=== PATIENT | female | born 1985 | race Hispanic/Latino ===

== ENCOUNTER 2017-07-16 06:35 | Inpatient (IN) | payer BC, OTHER ==
[~2017-07-16] VITALS: Ht 160 cm; Wt 123.0 kg
--- NOTE | 2017-07-16 21:56 | NUR ---
07/16/172155 Cheyenne Blair 2124 RESP EVEN AND UNLABORED. PT VOMITS 300ML OF GREEN FLUID. FLAVOR EXTRACTOR GIVES MEDICAITON. REFER TO [facility]BC CHARTING FOR FUTURE VITAL SIGNS. PT IN SUPINE POSITION. 2134 PT DENINES PAIN AND REPORTS NAUSEA HAS DECREASED. 2148 PT ASLEEP.
--- NOTE | 2017-07-17 10:04 | PR ---
[facility] [address] [facility] [place], [place] [address] Signed PP Progress Notes Datetime Report Generated by VERNA: 07/17/2017 10:04 SUBJECTIVE: [id number] Pain: Within normal limits Nausea/Vomiting: Denies Vital Signs: [id number] Vital Signs: Reviewed; Within Normal Limits EXAM: [id number] Cardiovascular: Normal Respiratory: Not Done Abdomen/Uterus: Abnormal Lochia: Normal Vulva/Perineum: Not Done Breasts: Not Done CVA Tenderness: Not Done Extremities: Normal Incision: Normal Progress: Not Applicable Exam Comments: Abdomen with active BS. Fundus firm, NT @ U-1. H/H 10.1/29.8, WBC 10.1, plat 204k IMPRESSION/PLAN/PROCEDURES: [id number] Impression: Normal progression Other Plans: cap IV, increase ambulation, shower Procedures: None Progress Notes: Doing well. Signing Physician: Brook Dela Cruz MD CC: *Electronically Signed* 07/17/17 1004 BROOK DELA CRUZ MD PATIENT NAME: CON HOUSER PROGRESS NOTE DATE OF : 89 PHYSICIAN: BROOK DELA CRUZ MD RPT #: [id number] REPORT IS CONFIDENTIAL AND NOT TO BE RELEASED WITHOUT AUTHORIZATION
--- NOTE | 2017-07-18 09:31 | PR ---
[facility] [address] [facility] [place], [place] [address] Signed PP Progress Notes Datetime Report Generated by VERNA: 07/18/2017 09:31 SUBJECTIVE: [id number] Pain: Within normal limits Nausea/Vomiting: Denies Flatus: Yes Vital Signs: [id number] Vital Signs: Reviewed; Within Normal Limits EXAM: [id number] Cardiovascular: Not Done Respiratory: Not Done Abdomen/Uterus: Abnormal Lochia: Normal Vulva/Perineum: Not Done Breasts: Not Done CVA Tenderness: Not Done Extremities: Normal Incision: Normal Progress: Not Applicable Exam Comments: Abdomen with active BS. Fundus firm, NT @ U-1. IMPRESSION/PLAN/PROCEDURES: [id number] Impression: Normal progression Plan: Continue present management Other Plans: cap IV, increase ambulation, shower Procedures: None Progress Notes: Doing well. Probable D/C in am. Signing Physician: Brook Dela Cruz MD CC: *Electronically Signed* 07/18/17 0931 BROOK DELA CRUZ MD PATIENT NAME: CON HOUSER PROGRESS NOTE DATE OF : 89 PHYSICIAN: BROOK DELA CRUZ MD RPT #: [id number] REPORT IS CONFIDENTIAL AND NOT TO BE RELEASED WITHOUT AUTHORIZATION
--- NOTE | 2017-07-19 08:53 | PR ---
[facility] [address] [facility] [place], [place] [address] Signed PP Progress Notes Datetime Report Generated by VERNA: 07/19/2017 08:53 SUBJECTIVE: [id number] Pain: Within normal limits Nausea/Vomiting: Denies Flatus: Yes Vital Signs: [id number] Vital Signs: Reviewed; Within Normal Limits EXAM: [id number] Cardiovascular: Not Done Respiratory: Not Done Abdomen/Uterus: Abnormal Lochia: Normal Vulva/Perineum: Not Done Breasts: Not Done CVA Tenderness: Not Done Extremities: Normal Incision: Normal Progress: Not Applicable Exam Comments: Fundus firm, NT @ U-1. IMPRESSION/PLAN/PROCEDURES: [id number] Impression: Normal progression Plan: Remove bashir; Discharge Other Plans: cap IV, increase ambulation, shower Procedures: None Progress Notes: Doing well. She is ready for D/C. Signing Physician: Brook Dela Cruz MD CC: *Electronically Signed* 07/19/17 0853 BROOK DELA CRUZ MD PATIENT NAME: CON HOUSER PROGRESS NOTE DATE OF : 89 PHYSICIAN: BROOK DELA CRUZ MD RPT #: [id number] REPORT IS CONFIDENTIAL AND NOT TO BE RELEASED WITHOUT AUTHORIZATION
--- NOTE | 2017-07-30 09:05 | OR ---
[facility] [address] [place], [place] [address] Signed DATE OF OPERATION: 07/16/2017 SURGEON: Juanjose Dela Cruz MD BRANCH SERVICE ASSOCIATE: Dr. Doe PREOPERATIVE DIAGNOSIS: Term , LGA infant, history of shoulder dystocia. POSTOPERATIVE DIAGNOSIS: Term , LGA infant, history of shoulder dystocia, delivered. PROCEDURE: Primary section with low segment transverse uterine incision. ANESTHESIA: Spinal. ESTIMATED BLOOD LOSS: 600 mL. DRAINS: Parra catheter. INDICATIONS AND FINDINGS: The patient is a 32-year-old female, 4, para 3, who was admitted at 38 and 6/7th weeks for induction secondary to history of LGA and shoulder dystocia. It was felt that this baby was a little smaller than her previously affected infant, who is 10 pounds 2 ounces. She was admitted to Labor and Delivery and received one dose of Cytotec and then underwent rupture of membranes with clear fluid seen. She was then begun on Pitocin augmentation as she failed to make significant progress and contraction pattern was irregular. She progressed slowly to 6 cm, as she was 4 cm at the time of rupture, but at that point, the patient decided that she did not wish to continue with labor and that she was very concerned about the size of the baby and the possibility of complications, and she wished to undergo section. She was counseled and she elected to continue with that course. She was taken to the operating room, where she was delivered of a little boy from the ROP position via lower segment transverse uterine incision with Apgars of 9 and 9 and weight of 9 pounds 2 ounces. There was a nuchal cord x1 which was loose. Electronically Signed By: JUANJOSE DELA CRUZ MD 07/30/17 0905 PATIENT NAME: CON HOUSER OPERATIVE REPORT DATE OF : 89 PHYSICIAN: JUANJOSE DELA CRUZ MD REPORT #: [id number] REPORT IS CONFIDENTIAL AND NOT TO BE RELEASED WITHOUT AUTHORIZATION [facility] [address] [place], [place] [address] Signed DESCRIPTION OF PROCEDURE: The patient was prepped and draped in the supine position. A Pfannenstiel skin incision was made and carried down through the fascia. The incision was extended laterally. The inferior and superior fascial flaps were then created. The muscles were bluntly divided. The peritoneum entered bluntly. The Luca retractor was then placed. The incision was made at the upper edge of the peritoneal reflection. The baby was delivered with the above findings and handed off to the pediatric staff in attendance. The placenta was removed manually and the uterus explored with a lap tape showing no remaining fragments. The edges of the incision were identified. The uterus was closed in 2 layers using 0 Monocryl. The first layer was a running locking stitch and second was vertical imbricating stitch. Good hemostasis was noted. The abdomen was copiously irrigated and inspected and still appeared hemostatic. The retractor was removed and the peritoneum identified. ACell graft was then laid over the lower segment to aid in healing. The peritoneum was then closed with a running suture of 3-0 Vicryl. There was an area of preperitoneal fat on the upper right side and this was excised after tying with 2-0 chromic ties as it was making visualization very difficult in that area. The muscles were then brought together with interrupted sutures of 0 Vicryl. Bleeding points were controlled with cautery and 2 telzca-zd-dwldo sutures of 0 Vicryl required on the right side for bleeding from a environmental engineer scientist. This layer was then irrigated and inspected and seen to be hemostatic. ACell powder was sprinkled over the muscles to aid in healing. The fascia was identified and was closed with a running suture from each angle to the midline with a running suture of 0 Vicryl. The subcutaneous tissue was irrigated and inspected and bleeding points controlled with cautery. Because of the depth of the subcutaneous, another ACell powder was sprinkled in this layer. Interrupted sutures of 3-0 Vicryl were used to reapproximate the subcutaneous tissue. The skin was closed with bashir. All sponge and needle counts were correct. She tolerated procedure well and was taken to the recovery room in good condition. Juanjose Dela Cruz MD PJW/MODL /[id number] Electronically Signed By: JUANJOSE DELA CRUZ MD 07/30/17 0905 PATIENT NAME: CON HOUSER OPERATIVE REPORT DATE OF : 89 PHYSICIAN: JUANJOSE DELA CRUZ MD REPORT #: [id number] REPORT IS CONFIDENTIAL AND NOT TO BE RELEASED WITHOUT AUTHORIZATION [address] [address] Signed cc: Dr. Doe Electronically Signed By: JUANJOSE DELA CRUZ MD 07/30/17 0905 PATIENT NAME: CORRINACON OPERATIVE REPORT DATE OF : 89 PHYSICIAN: JUANJOSE DELA CRUZ MD REPORT #: [id number] REPORT IS CONFIDENTIAL AND NOT TO BE RELEASED WITHOUT AUTHORIZATION
== END 2017-07-19 11:25 | disposition home or self-care (01) | DRG 766 ==
LOC: FBC 06:35
PROVIDERS: ADMIT Obstetrics & Gynecology
PROC: 10D00Z1 Extraction of Products of Conception, Low, Open Approach (ICD-10-PCS; principal; 2017-07-16 20:00)
DX: O36.63X0 Maternal care for excessive fetal growth, third trimester, not applicable or unspecified (principal); Z3A.38 38 weeks gestation of pregnancy; Z37.0 Single live birth; O66.0 Obstructed labor due to shoulder dystocia; O69.81X0 Labor and delivery complicated by cord around neck, without compression, not applicable or unspecified
CPT/HCPCS: 36415; 85027; C1763; J0690; J1200; J1644; J2274; J2370; J2405; J2590; J2765; J3010; J7120

== ENCOUNTER 2019-03-22 08:47 | Inpatient (IN) | payer OTHER ==
[~2019-03-22] VITALS: Ht 160 cm; Wt 120.0 kg
--- NOTE | ~2019-03-22 | OR ---
[facility] [address] [place], [place] [address] Draft DATE OF OPERATION: 03/29/2019 SURGEON: Brook Dela Cruz MD BUSINESS SERVICES ANALYST: Patel Schmid MD. PREOPERATIVE DIAGNOSIS: Term , previous section. POSTOPERATIVE DIAGNOSIS: Term , previous section, delivered. PROCEDURE: Repeat section with low segment transverse uterine incision. ANESTHESIA: Spinal. ESTIMATED BLOOD LOSS: 600 mL. DRAINS: Parra catheter. INDICATIONS AND FINDINGS: The patient is a 33-year-old female, 5, para 4, admitted at 39 and 1/7th weeks for repeat section. Her has been remarkable for late registration and obesity. At the time of surgery, she was delivered of a little girl from the ROP position via lower segment transverse uterine incision with Apgars of 8 and 9 and weight of 7 pounds 14 ounces. The lower uterine segment was very thin. There was a single omental adhesion to the anterior peritoneum as well. The uterus, tubes, ovaries, and placenta were otherwise normal. DESCRIPTION OF PROCEDURE: The patient was prepped and draped in the supine position. A Pfannenstiel skin incision was made through her prior scar and carried down to the fascia. The incision was then extended laterally. The inferior and superior fascial flaps were then created. The muscles were sharply divided in the midline. The peritoneum was opened and incised superiorly and inferiorly. The Luca retractor was then placed and an incision made on PATIENT NAME: CON HOUSER OPERATIVE REPORT DATE OF : 89 REPORT #: [id number] PHYSICIAN: BROOK DELA CRUZ MD PCP: UNASSIGNED DOCTOR REPORT IS CONFIDENTIAL AND NOT TO BE RELEASED WITHOUT AUTHORIZATION [facility] [address] [place], [place] [address] Draft the uterus at the upper aspect of the peritoneal reflection. The uterine wall was very thin. The baby was delivered with the above findings and handed off to the pediatric staff in attendance. The placenta was removed manually and the uterus explored with a lap tape assuring no remaining fragments. The edges of the incision were identified and the uterus was closed in 2 layers using 0 Monocryl. The first layer was a running locking stitch. The 2nd was a vertical imbricating stitch. The abdomen was then copiously irrigated, inspected, and good hemostasis noted. The retractor was removed and the peritoneum identified. An ACell graft was laid over the lower segment to aid in healing. Preparations were then made for closure of the peritoneum. The omental adhesion was identified at this point, and this was removed using cutting current on the cautery with good hemostasis noted. The peritoneum was then closed with a running suture of 3-0 Vicryl. The muscles were brought together in the midline with interrupted sutures of 0 Vicryl. The vessel was lacerated on the upper right side during this procedure and repeat stitch was placed in this area with good hemostasis noted. ACell powder was sprinkled over this layer to aid in healing. The fascia was then closed from each angle to the midline with a running suture of 0 Vicryl. The subcutaneous tissue was irrigated and bleeding points controlled with cautery. The deep space was closed with interrupted sutures of 3-0 Vicryl. The skin was closed with bashir. All sponge and needle counts were correct. She tolerated the procedure well and was taken to the recovery room in good condition. MD CARRINGTON Puga/MODL /[id number] cc: Patel Schmid MD Copies: PATEL SCHMID MD ~ PATIENT NAME: CON HOUSER OPERATIVE REPORT DATE OF : 89 REPORT #: [id number] PHYSICIAN: BROOK DELA CRUZ MD PCP: UNASSIGNED DOCTOR REPORT IS CONFIDENTIAL AND NOT TO BE RELEASED WITHOUT AUTHORIZATION
--- NOTE | 2019-03-29 08:41 | NUR ---
03/29/19 0841 Cheyenne Grider 0865 PT ARRIVED TO ROOM 103 AND PT MOTHER AT BEDSIDE. PT AWAKE AND TALKING. PT HOLDING BABY. VSS. 0830 PT DENIES NAUSEA AND PAIN.
--- NOTE | 2019-03-30 09:00 | PR ---
[facility] [address] [facility] [place], [place] [address] Signed PP Progress Notes Datetime Report Generated by CPEstee: 03/30/2019 09:00 SUBJECTIVE: [id number] Pain: Within normal limits Nausea/Vomiting: Denies Flatus: Yes Vital Signs: [id number] Vital Signs: Reviewed; Within Normal Limits EXAM: [id number] Cardiovascular: Normal Respiratory: Normal Abdomen/Uterus: Abnormal Lochia: Normal Vulva/Perineum: Not Done Breasts: Not Done CVA Tenderness: Not Done Extremities: Normal Incision: Normal Progress: Not Applicable Exam Comments: Abdomen with active BS. Fundus firm, NT @ U-1. H/H 9.2/27.5, WBC 6.3, plat 163k IMPRESSION/PLAN/PROCEDURES: [id number] Impression: Normal progression Other Plans: ambulate, shower, D/C IV Procedures: None Progress Notes: Doing well. Will advance care. Signing Physician: Brook Dela Cruz MD Copies: ~ *Electronically Signed* 03/30/19 0900 BROOK DELA CRUZ MD PATIENT NAME: CON HOUSER PROGRESS NOTE DATE OF : 89 PHYSICIAN: BROOK DELA CRUZ MD RPT #: [id number] REPORT IS CONFIDENTIAL AND NOT TO BE RELEASED WITHOUT AUTHORIZATION
--- NOTE | 2019-03-31 08:06 | PR ---
[facility] [address] [facility] [place], [place] [address] Signed PP Progress Notes Datetime Report Generated by CPN: 03/31/2019 08:06 SUBJECTIVE: [id number] Pain: Within normal limits Pain Comments: Sore when moving around. Nausea/Vomiting: Denies Flatus: Yes Vital Signs: [id number] Vital Signs: Reviewed; Within Normal Limits EXAM: [id number] Cardiovascular: Normal Respiratory: Not Done Abdomen/Uterus: Abnormal Lochia: Normal Vulva/Perineum: Not Done Breasts: Not Done CVA Tenderness: Not Done Extremities: Normal Incision: Normal Progress: Not Applicable Exam Comments: Active BS. Fundus firm, NT @ U-1. IMPRESSION/PLAN/PROCEDURES: [id number] Impression: Normal progression Plan: Continue present management Other Plans: ambulate, shower, D/C IV Procedures: None Progress Notes: Doing well but still very sore. Will continue present care. Signing Physician: Brook Dela Cruz MD Copies: ~ *Electronically Signed* 03/31/19 0806 BROOK DELA CRUZ MD PATIENT NAME: CON HOUSER PROGRESS NOTE DATE OF : 89 PHYSICIAN: BROOK DELA CRUZ MD RPT #: [id number] REPORT IS CONFIDENTIAL AND NOT TO BE RELEASED WITHOUT AUTHORIZATION
--- NOTE | 2019-03-31 08:07 | PR ---
[facility] [address] [facility] [place], [place] [address] Signed PP Progress Notes Datetime Report Generated by CPN: 03/31/2019 08:07 SUBJECTIVE: [id number] Pain: Within normal limits Pain Comments: Sore when moving around. Nausea/Vomiting: Denies Flatus: Yes Vital Signs: [id number] Vital Signs: Reviewed; Within Normal Limits EXAM: [id number] Cardiovascular: Normal Respiratory: Not Done Abdomen/Uterus: Abnormal Lochia: Normal Vulva/Perineum: Not Done Breasts: Not Done CVA Tenderness: Not Done Extremities: Normal Incision: Normal Progress: Not Applicable Exam Comments: Active BS. Fundus firm, NT @ U-1. IMPRESSION/PLAN/PROCEDURES: [id number] Impression: Normal progression Plan: Continue present management Other Plans: ambulate, shower, D/C IV Procedures: None Progress Notes: Doing well but still very sore. Will continue present care. Signing Physician: Brook Dela Cruz MD Copies: ~ *Electronically Signed* 03/31/19 0807 BROOK DELA CRUZ MD PATIENT NAME: CON HOUSER PROGRESS NOTE DATE OF : 89 PHYSICIAN: BROOK DELA CRUZ MD RPT #: [id number] REPORT IS CONFIDENTIAL AND NOT TO BE RELEASED WITHOUT AUTHORIZATION
--- NOTE | 2019-04-01 09:36 | PR ---
[facility] [address] [facility] [place], [place] [address] Signed PP Progress Notes Datetime Report Generated by CPN: 04/01/2019 09:36 SUBJECTIVE: [id number] Pain: Within normal limits Pain Comments: Pain much better. Nausea/Vomiting: Denies Flatus: Yes Vital Signs: [id number] Vital Signs: Reviewed; Within Normal Limits EXAM: [id number] Cardiovascular: Not Done Respiratory: Not Done Abdomen/Uterus: Abnormal Lochia: Normal Vulva/Perineum: Not Done Breasts: Not Done CVA Tenderness: Not Done Extremities: Normal Incision: Normal Progress: Not Applicable Exam Comments: Abdomen with active BS. Fundus firm, NT @ U-1. IMPRESSION/PLAN/PROCEDURES: [id number] Impression: Normal progression Plan: Remove bashir; Discharge Other Plans: ambulate, shower, D/C IV Procedures: None Progress Notes: Doing well. She is now ready for D/C. Signing Physician: Brook Dela Cruz MD Copies: ~ *Electronically Signed* 04/01/19 0936 BROOK DELA CRUZ MD PATIENT NAME: CON HOUSER PROGRESS NOTE DATE OF : 89 PHYSICIAN: BROOK DELA CRUZ MD RPT #: [id number] REPORT IS CONFIDENTIAL AND NOT TO BE RELEASED WITHOUT AUTHORIZATION
== END 2019-04-01 11:20 | disposition home or self-care (01) | DRG 788 ==
LOC: FBC 03-29 05:30
PROVIDERS: ADMIT Obstetrics & Gynecology
PROC: 10D00Z1 Extraction of Products of Conception, Low, Open Approach (ICD-10-PCS; principal; 2019-03-29 06:45)
DX: O34.211 Maternal care for low transverse scar from previous cesarean delivery (principal); N85.8 Other specified noninflammatory disorders of uterus; Z3A.39 39 weeks gestation of pregnancy; Z37.0 Single live birth; O99.214 Obesity complicating childbirth; E66.01 Morbid (severe) obesity due to excess calories; O90.81 Anemia of the puerperium; D64.9 Anemia, unspecified; O99.824 Streptococcus B carrier state complicating childbirth; Z88.0 Allergy status to penicillin
CPT/HCPCS: 01961; 36415; 85027; J0690; J1100; J1170; J1644; J2274; J2300; J2370; J2405; J2590; J2765; J3010; J7120

== ENCOUNTER 2019-04-10 16:45 | Emergency (ER) | payer OTHER ==
[~2019-04-10] VITALS: Ht 160 cm; Wt 119.3 kg
--- OUTSIDE RECORDS SUMMARY | ~2019-04-10 | XMS | Clinical Summary ---
Demographics + + + | Address | [address] | | | [place] [address] | + + + | Home Phone | | + + + | Preferred Language | Unknown | + + + | Marital Status | Single | + + + | Faith Affiliation | Unknown | + + + | Race | Unknown | + + + | Ethnic Group | Unknown | + + + Author + + + | Author | [facility] (Historical as of | | | 02-25-19) | + + + | Organization | [facility] (Historical as of | | | 02-25-19) | + + + | Address | Unknown | + + + | Phone | Unavailable | + + + Support + + + + + | Name | Relationship | Address | Phone | + + + + + | Bib,Message | ECON | [address] | | | | | [id number], [place] | | | | | [address] | | + + + + + | Yumiko Carson | ECON | Unknown | | + + + + + Care Team Providers + +------+ + | Care Priest Name | Role | Phone | + +------+ + PP | Unavailable | + +------+ + Allergies + + + + + + | Active Allergy | Reactions | Severity | Noted | Comments | | | | | Date | | + + + + + + | Amoxicillin | Other (See Comments) | Medium | 09/08/19 | child | | | | | 16 | | + + + + + + | Penicillins | Other (See Comments) | Medium | 09/08/19 | Childhood | | | | | 16 | | + + + + + + Current Medications No known medications Active Problems No known active problems Family History + + +------+ + | Medical History | Relation | Name | Comments | + + +------+ + | Diabetes type II | Father | | | + + +------+ + | High cholesterol | Father | | | + + +------+ + | Hypertension | Father | | | + + +------+ + | Cancer | Maternal | | breast | | | Grandmoth | | | | | er | | | + + +------+ + | Stroke | Paternal | | | | | Aunt | | | + + +------+ + | Stroke | Paternal | | | | | Grandfath | | | | | er | | | + + +------+ + + +------+--------+ + | Relation | Name | Status | Comments | + +------+--------+ + | Father | | Alive | | + +------+--------+ + | Maternal Grandmother | | | | + +------+--------+ + | Mother | | Alive | | + +------+--------+ + | Paternal Aunt | | | | + +------+--------+ + | Paternal Grandfather | | | | + +------+--------+ + Social History + +-------+ +--------+------+ | Tobacco Use | Types | Packs/Day | Years | Date | | | | | Used | | + +-------+ +--------+------+ | Never Smoker | | | | | + +-------+ +--------+------+ + +---+---+---+ | Smokeless Tobacco: | | | | | Never Used | | | | + +---+---+---+ + + +---------+ + | Alcohol Use | Drinks/We | oz/Week | Comments | | | ek | | | + + +---------+ + | Yes | | | occ | + + +---------+ + + + + | Sex Assigned at | Date Recorded | | | | + + + | Not on file | | + + + Last Filed Vital Signs + + + + | Vital Sign | Reading | Time Taken | + + + + | Blood Pressure | 118/80 | 01/26/2014 11:32 AM PDT | + + + + | Pulse | 64 | 01/26/2014 11:32 AM PDT | + + + + | Temperature | 37.1 C (98.7 F) | 01/26/2014 11:32 AM PDT | + + + + | Respiratory Rate | 16 | 09/08/2013 10:44 AM PST | + + + + | Oxygen Saturation | 96% | 01/26/2014 11:32 AM PDT | + + + + | Inhaled Oxygen | - | - | | Concentration | | | + + + + | Weight | 91.7 kg (202 lb 4 | 01/26/2014 11:32 AM PDT | | | oz) | | + + + + | Height | 157.5 cm (5' 2") | 10/09/2013 3:35 PM PDT | + + + + | Body Mass Index | 36.99 | 01/26/2014 11:32 AM PDT | + + + + Plan of Treatment + + + + + | Health Maintenance | Due Date | Last Done | Comments | + + + + + | Vaccine: | | | | | Dtap/Tdap/Td (1 - | 6 | | | | Tdap) | | | | + + + + + | Cervical Cancer | | | | | Screening (Pap) | 7 | | | + + + + + | Vaccine: Influenza | | | | | (#1) | 9 | | | + + + + + Results Not on filefrom Last 3 Months Insurance + +--------+ +------+-------+ + | Payer | Benefi | Subscriber | Type | Phone | Address | | | t Plan | ID | | | | | | / | | | | | | | Group | | | | | + +--------+ +------+-------+ + | MEDICAID | MEDICA | [id number] | | | [address] | | | ID | | | | [place] | | | [place] & | | | | [phone] | | | OUPT | | | | | + +--------+ +------+-------+ + + +--------+ +--------+ + + | Guarantor Name | Accoun | Relation to | Date | Phone | Billing Address | | | t Type | Patient | of | | | | | | | | | | + +--------+ +--------+ + + | CON HOUSER | Person | Self [birth year] Home: | [address] | | | [place] | | 1984 | [phone] | [place] | | | [place] | | [phone] | [phone] | + +--------+ +--------+ + +
--- OUTSIDE RECORDS SUMMARY | ~2019-04-10 | XMS | Clinical Summary ---
Demographics + + + | Address | [address] | | | [place] [address] | + + + | Home Phone | | + + + | Preferred Language | Unknown | + + + | Marital Status | Single | + + + | Alevism Affiliation | Unknown | + + + | Race | Unknown | + + + | Ethnic Group | Unknown | + + + Author + + + | Author | [facility] | | | and [place] | + + + | Organization | [facility] | | | and [place] | + + + | Address | Unknown | + + + | Phone | Unavailable | + + + Care Team Providers + +------+ + | Care Service Desk Associate Name | Role | Phone | + +------+ + PCP | Unavailable | + +------+ + Allergies Not on File Medications Not on file Active Problems Not on file Family History + + +------+ + | Medical History | Relation | Name | Comments | + + +------+ + | Diabetes, NIDDM | Father | | | + + [...] Alive | | + +------+--------+ + | Father | | | | + +------+--------+ + | Maternal [...] | | | + +-------+ +--------+------+ + + + | Sex Assigned at | Date Recorded | | | | + + + | Not on file | | + + + + + + + | Job Start Date | Occupation | Industry | + + + + | Not on file | Not on file | Not on file | + + + + + + + + | Travel History | Travel Start | Travel End | + + + + + + | No recent travel history available. | + + Last Filed Vital Signs Not on file Plan of Treatment + + + + [...] + Results Not on filefrom Last 3 Months"
--- OUTSIDE RECORDS SUMMARY | ~2019-04-10 | XMS | Clinical Summary ---
Demographics + + + | Address | [address] | | | [place] [address] | + + + | Home Phone | | + + + | Preferred Language | Unknown | + + + | Marital Status | Single | + + + | Nondenominational Affiliation | Unknown | + + + | Race | Unknown | + + + | Ethnic Group | Unknown | + + + Author + + + | Author | [facility] | | | and [place] | + + + | Organization | [facility] | | | and [place] | + + + | Address | Unknown | + + + | Phone | Unavailable | + + + Care Team Providers + +------+ + | Care Excel Vba Developer Name | Role | Phone | + [...]
--- OUTSIDE RECORDS SUMMARY | ~2019-04-10 | XMS | Clinical Summary ---
Demographics + + + | Address | [address] | | | [place] [address] | + + + | Home Phone | | + + + | Preferred Language | Unknown | + + + | Marital Status | Single | + + + | Yazdanism Affiliation | Unknown | + + + | Race | Unknown | + + + | Ethnic Group | Unknown | + + + Author + + + | Author | [facility] + Isabel (Historical as of | | | 02-25-19) | + + + | Organization | [facility] + Isabel (Historical as of | | | 02-25-19) | + + + | Address | Unknown | + + + | Phone | Unavailable | + + + Support + + + + + | Name | Relationship | Address | Phone | + + + + + | Bib,Message | ECON | [address] | | | | | [id number], [place] | | | | | [address] | | + + + + + | Yumiko Carson | ECON | Unknown | | + + + + + Care Team Providers + +------+ + | Care Corporate Travel Expert Name | Role | Phone | + [...] +------+-------+ + | MEDICAID | MEDICA | [id number] | | | [address] | | | ID | | | | [place] | | | INPT & | | | | [address] | | | OUPT | | | [...] | kaylan | | | [phone] | [phone] | + +--------+ +--------+ + +
[2019-04-10] MEDS ORDERED: NYSTATIN15 GM TOP (18:57)
[2019-04-10] MEDS ORDERED: CEFUROXIME250 MG PO (18:57)
== END 2019-04-10 19:12 | disposition home or self-care (01) ==
LOC: ED 16:45
DX: O99.63 Diseases of the digestive system complicating the puerperium (principal); K80.20 Calculus of gallbladder without cholecystitis without obstruction; O98.33 Other infections with a predominantly sexual mode of transmission complicating the puerperium; A59.01 Trichomonal vulvovaginitis; O86.20 Urinary tract infection following delivery, unspecified; Z88.0 Allergy status to penicillin
CPT/HCPCS: 76705; 80053; 81001; 83690; 85025; 87088; 96361; 99284-25; J0696; J2405; J7030

== ENCOUNTER 2019-05-12 06:50 | Day surgery (SDC) | payer OTHER ==
[~2019-05-12] VITALS: Ht 160 cm; Wt 112.0 kg
[~2019-05-12 06:50] MED LIST: CEFUROXIME250 MG PO; IRON325 M1 PO; NYSTATIN15 GM TOP
--- NOTE | 2019-05-12 09:53 | NUR ---
05/12/19 0953 Kathy Burton 0947- PT ARRIVES TO PACU NONAROUSABLE TO NOXIOUS STIMULI WITH OPA IN PLACE. RESP EVEN AND UNLABORED. OXYGEN SAT MID TO HIGH 90'S ON 6L VIA MASK.
--- NOTE | 2019-05-12 10:52 | NUR ---
PT ARRIVES TO DS RM 5 FROM PACU WITH EYES CLOSED, RESP EVEN AND UNLABORED. SATS ABOVE 94%, CONT PULSE OXIMETER LEFT IN PLACE. COOL WASH CLOTH TO FOREHEAD, STATES NAUSEA WITH NO VOMITING. PT RATES PAIN 2/10 IN ABD. ICED WATER PROVIDED, MOTHER AT BEDSIDE, CALL LIGHT WITHIN REACH.
[2019-05-12] MEDS ORDERED: NORCO 5-325 TA1 EACH PO (11:25)
--- NOTE | 2019-05-12 11:59 | NUR ---
PT RESTING IN BED AWAKE. STATES PAIN IN ABD IS 4/10 AND WOULD LIKE PAIN MEDICATION. PT TOLERATES CRACKERS AND WATER, MEDICATED FOR PAIN SEE EMAR. PT STATES NAUSEA IS "VERY LITTLE" AT THIS TIME. PT STATES PRESSURE MIDSTERNUM THAT RADIATES TO BACK BUT DENIES ANY SHORTNESS OF BREATH OF EFFORT TO BREATH. PT SATS 97% ON RA. PT ENCOURAGED TO AMBULATE HALLWAY TO HELP WITH POSSIBLE GAS PAIN. CALL LIGHT IN REACH, PT MOTHER AT BEDSIDE.
--- NOTE | 2019-05-12 12:30 | OR ---
[facility] [address] [place], [place] [address] Signed DATE OF OPERATION: 05/12/2019 SURGEON: Esa Seay MD PREOPERATIVE DIAGNOSIS: Acute on chronic cholecystitis and cholelithiasis. POSTOPERATIVE DIAGNOSIS: Acute on chronic cholecystitis and cholelithiasis. PROCEDURE: Laparoscopic cholecystectomy with intraoperative cholangiogram. ESTIMATED BLOOD LOSS: None. FINDINGS: The intraoperative cholangiogram was unremarkable. Con had multiple 4-6 mm stones in the gallbladder. INDICATIONS: Con is a 34-year-old female, who just had her 5th baby a little over a month ago. She had been in the emergency room with a rather significant episode of epigastric abdominal pain. Liver function tests and lipase were unremarkable. Her urinalysis did show Trichomonas and she has been on treatment for that. An ultrasound had been performed and she had multiple mobile stones within the gallbladder. Her gallbladder wall was not thickened and the common bile duct was unremarkable. Consequently, she had been discharged on antibiotics. She has followed up with her engraver hand soft metals. In retrospect, she feels like she has had symptoms actually for several years. She said this episode was absolutely terrible. She had ongoing symptoms. Consequently, her engraver hand soft metals asked her to see me with respect to the above. I met with Con in the office. I gave her a booklet on gallbladder. She understands the location and function of the gallbladder. We have discussed laparoscopic versus open cholecystectomy. We have reviewed the expected intraop and postop course. There is risk to surgery including not limited to bleeding, infection, scarring, change in contour of the skin, damage to bowel, damage to main bile duct, incisional hernias and other unforeseen comorbidities. She had expressed understanding and wished to proceed. PROCEDURE NOTE: I met with Con and her mother in our preop area. After answering their questions, Electronically Signed By: ESA SEAY MD 05/12/19 1230 PATIENT NAME: CON OHUSER OPERATIVE REPORT DATE OF : 89 REPORT #: [id number] PHYSICIAN: ESA SEAY MD PCP: NO PRIMARY CARE PHYSICIAN REPORT IS CONFIDENTIAL AND NOT TO BE RELEASED WITHOUT AUTHORIZATION [facility] [address] [place], [place] [address] Signed Con was taken into the operating room and placed in a supine position under general endotracheal tube anesthesia. She was given preoperative antibiotics along with subcutaneous heparin. SCDs were utilized. She was then prepped and draped in the usual sterile fashion. All trocars were placed in usual positions under direct visualization of camera without difficulty. The gallbladder was grasped and elevated in the right upper quadrant. Pictures were taken throughout for photodocumentation. The triangle of Calot was dissected free. Two clips were placed on the cystic artery and it was divided. The intraoperative cholangiocatheter was inserted into the cystic duct. The intraoperative cholangiogram was then performed. The intraoperative cholangiogram was unremarkable. The contrast flowed freely into the duodenum. No filling defects noted. The cystic duct stump was secured with a PDS Endoloop and three clips were placed across the cystic duct stump to kd its location. The gallbladder was then removed from the gallbladder fossa with the help of the cautery and placed into an EndoCatch bag. We used our laparoscopic suturing device to pass 0 Vicryl suture on either side of the fascia of the subxiphoid trocar site. This was tied down to close this fascia primarily. The right upper quadrant had been irrigated and suctioned out until clear. All the trocars were removed and the gas was allowed to escape. The gallbladder was passed off to our circulating nurse. It was opened on the back table and a picture was taken for photodocumentation. We closed the fascia of the supraumbilical trocar site with interrupted [id number] and simple 0 Vicryl sutures. Local anesthetic was copiously injected into all trocar sites. Each trocar site was irrigated and suctioned out until clear. The skin and dermis of each trocar site were closed with interrupted 3-0 subcuticular Monocryl sutures. Dry gauze and tape were applied to all incisions. Con was awakened from anesthesia, extubated in the OR, and taken to recovery room in stable condition. Esa Seay MD ALB/MODL /[id number] cc: MD Esa Puga MD Electronically Signed By: ESA SEAY MD 05/12/19 1230 PATIENT NAME: CON HOUSER OPERATIVE REPORT DATE OF : 89 REPORT #: [id number] PHYSICIAN: ESA SEAY MD PCP: NO PRIMARY CARE PHYSICIAN REPORT IS CONFIDENTIAL AND NOT TO BE RELEASED WITHOUT AUTHORIZATION [address] [address] Signed Copies: JUANJOSE SOTO MD, ANDREW L MD ~ Electronically Signed By: ESA SEAY MD 05/12/19 1230 PATIENT NAME: CON HOUSER OPERATIVE REPORT DATE OF : [birth year] REPORT #: [id number] PHYSICIAN: ESA SEAY MD PCP: NO PRIMARY CARE PHYSICIAN REPORT IS CONFIDENTIAL AND NOT TO BE RELEASED WITHOUT AUTHORIZATION
--- NOTE | 2019-05-12 12:55 | NUR ---
STATES STILL HAVING PAIN REQUESTS 2ND PAIN PILL AND GIVEN. RATES PAIN 5/10.
--- NOTE | 2019-05-12 13:00 | NUR ---
1255: PT HAS URGE TO VOID. THIS RN ASSISTS PT TO SIDE OF BED, DENIES NAUSEA OR DIZZINESS WITH POSITION CHANGE. PT STANDS AT SIDE OF BED BEFORE AMBULATING TO BATHROOM. STEADY GAIT WITH RN ASSIST. PT ABLE TO VOID 650 MLS WITH NO PROBLEMS. PT STATES PRESSURE IN BACK DISSIPATES WITH AMBULATION, BUT MIDSTERNUM PAIN STILL PRESENT. PT AGREES TO AMBULATE DS UNIT HALLWAYS TO HELP WITH POSSIBLE REFERRED GAS PAIN. 1320: PT BACK TO ROOM IN BED. PT STATES MIDSTERNUM PRESSURE LESSENS WITH AMBULATION BUT IS STILL PRESENT. DR. SEAY NOTIFIED OF PT STATUS, STATES "REFERRED GAS PAIN CAN LAST 24 TO 48 HOURS UNTIL BODY REABSORBS GAS." PT INFORMED.
--- NOTE | 2019-05-12 14:00 | NUR ---
PT TOLERATES LUNCH WITH NO C/O NAUSEA.
--- NOTE | 2019-05-12 15:26 | NUR ---
1445: PT WOULD LIKE TO DC HOME. PT STATES PAIN TOLERABLE IN ABD RATES /. PT ALSO STATES MIDSTERNUM PAIN HAS DECREASED BUT IS STILL PRESENT. PT DRESSES SELF WITH MOTHER IN ROOM. 1500: DC INSTRUCTIONS GIVEN IN PRESENCE OF PT AND PT MOTHER. PAIN PRESCRIPTION IN DC FOLDER. PT DC'S VIA WC TO PERSONAL VEHICLE AT MAIN ENTRANCE OF HOSPITAL.
--- NOTE | 2019-05-16 12:07 | PATH ---
[facility] [address] [place], [place] [address] Signed SPECIMEN(S): A GALLBLADDER WITH STONES SPECIMEN SOURCE: A. GALLBLADDER WITH STONES CLINICAL HISTORY: Symptomatic chronic cholecystitis with cholelithiasis. FINAL PATHOLOGIC DIAGNOSIS: Gallbladder, cholecystectomy: - Chronic cholecystitis with cholesterolosis. - Cholelithiasis. - Negative for dysplasia or malignancy. NAL:cml:C2NR MICROSCOPIC EXAMINATION: Histologic sections of all submitted blocks are examined by light microscopy. These findings, together with the gross examination, support the pathologic diagnosis. GROSS DESCRIPTION: The specimen, labeled ", gallbladder," is received in formalin and consists of Specimen: Previously opened gallbladder. Dimensions: 5.5 cm in length and 4.2 cm in inner circumference. Serosa: Violaceous and smooth. Cystic Duct: Unobstructed. Calculi: Numerous yellow, round gallstones within the container that measure from 0.5 to 0.7 cm in diameter. Mucosa: Chumuckla-bolden and velvety with yellow flecking. Wall thickness: 0.4 cm. Lymph node: No pericystic lymph nodes are grossly identified. Additional: None. Merchandising Internship sections are submitted in cassette (A1). JS (under the direct supervision of a pathologist) The Gross Description was prepared using a voice recognition system. The report was reviewed for accuracy; however, sound-alike word errors, addition and/or deletions may occur. If there is any question about this report, please contact Client Services. PERFORMING LABORATORY: PATIENT NAME: CON HOUSER [facility] DATE OF : [birth year] REPORT #: [id number] PHYSICIAN: STALIN LANE PCP: NO PRIMARY CARE PHYSICIAN REPORT IS CONFIDENTIAL AND NOT TO BE RELEASED WITHOUT AUTHORIZATION [facility] [address] [phone] Signed The technical component [place] performed [place] [address] (Spinner Continuous: Ana Rosa Valle MD; CLIA# [id number]). Professional interpretation was performed by [employer] [facility] [address] [address] (Spinner Continuous: Sridhar Owens MD; CLIA# [id number]). Diagnostician: Reema Dhillon MD Pathologist Electronically Signed 05/15/2019 Copies: ~ PATIENT NAME: CON HOUSER PATHOLOGY DATE OF : [birth year] REPORT #: [id number] [address]YSICIAN: STALIN L[address] PCP: NO PRIMARY CARE PHYSICIAN REPORT IS CONFIDENTIAL AND NOT TO BE RELEASED WITHOUT AUTHORIZATION
== END 2019-05-12 15:05 | disposition home or self-care (01) ==
LOC: DS 06:50
PROVIDERS: Colon & Rectal Surgery
PROC: BF13YZZ Fluoroscopy of Gallbladder and Bile Ducts using Other Contrast (ICD-10-PCS; 2019-05-12)
PROC: 0FT44ZZ Resection of Gallbladder, Percutaneous Endoscopic Approach (ICD-10-PCS; principal; 2019-05-12 08:00)
DX: K80.12 Calculus of gallbladder with acute and chronic cholecystitis without obstruction (principal); Z79.899 Other long term (current) drug therapy
CPT/HCPCS: 00790; 74300; J0131; J0690; J1100; J1644; J1885; J2250; J2405; J2704; J3010; J7121; Q9967

== ENCOUNTER 2021-02-08 11:36 | Emergency (ER) | payer OTHER ==
[~2021-02-08] VITALS: Ht 160 cm; Wt 112.0 kg
[~2021-02-08 11:36] MED LIST changes: +NORCO 5-325 TA1 EACH PO
== END 2021-02-08 14:10 | disposition home or self-care (01) ==
LOC: ED 11:36
DX: U07.1 COVID-19 (principal); Z88.0 Allergy status to penicillin
CPT/HCPCS: 99284; C9803; U0003

== ENCOUNTER 2021-02-27 21:13 | Emergency (ER) | payer OTHER ==
[~2021-02-27] VITALS: Ht 160 cm; Wt 115.7 kg
--- OUTSIDE RECORDS SUMMARY | 2021-02-27 21:20 | XMS ---
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 [place] VISIT COUNT (12 MO.) 2 [facility] TOTAL 2 NOTE: Visits indicate total known visits. ED/UCC VISIT TRACKING (12 MO.) 02/27/2021 21:13 [facility] TYPE: Emergency COMPLAINT: - L SHOULDER/UPPER CHEST PAIN 02/08/2021 11:36 [facility] [place] TYPE: Emergency COMPLAINT: - SOB DIAGNOSES: - COVID-19 - Shortness of breath - Allergy status to penicillin INPATIENT VISIT TRACKING (12 MO.) No inpatient visits to display in this time frame [email or web address]
--- NOTE | 2021-02-27 21:36 | NUR ---
2124 EKG performed and given to physician.
--- NOTE | 2021-03-02 12:54 | EKG ---
[facility] [address] [facility] [place] [address] Signed Normal sinus rhythm with sinus arrhythmia Normal ECG No previous ECGs available Confirmed by PROSPER PELAYO MD ([id number]) on 03/02/2021 12:53:55 PM Electronically Signed By: PROSPER PELAYO MD 03/02/21 1254 PATIENT NAME: CON HOUSER Electrocardiogram DATE OF : 89 PHYSICIAN: PROSPER PELAYO MD REPORT #: [id number] REPORT IS CONFIDENTIAL AND NOT TO BE RELEASED WITHOUT AUTHORIZATION
== END 2021-02-28 03:10 | disposition home or self-care (01) ==
LOC: ED 21:13
DX: R07.9 Chest pain, unspecified (principal); Z88.0 Allergy status to penicillin
CPT/HCPCS: 71045; 71260; 80048; 83735; 84484; 84703; 85025; 85379; 93005; 93010; 99285-25; J1885; J2060; J7121; Q9967